=== PATIENT | female | born 1995 | race African-American/Black ===

== ENCOUNTER 2021-04-03 20:25 | Emergency (ER) | payer SELFPAY ==
[2021-04-03] MEDS ORDERED: Dexamethasone 10 MG/ML VIAL ONE (21:06)
[2021-04-03] MEDS ORDERED: Acetaminophen 500 MG TAB ONE (21:07)
== END 2021-04-03 21:53 | disposition home or self-care (01) ==
LOC: CSHERS 20:25
DX: J02.9 Acute pharyngitis, unspecified (principal)
CPT/HCPCS: 87081; 87430; 99284; J1100

== ENCOUNTER 2022-07-08 08:43 | Emergency (ER) | payer OTHER, SELFPAY | END 2022-07-08 10:04 | disposition home or self-care (01) | LOC: CSHERS 08:43 | DX: S23.3XXA Sprain of ligaments of thoracic spine, initial encounter (principal); V89.2XXA Person injured in unspecified motor-vehicle accident, traffic, initial encounter | CPT/HCPCS: 99283 ==

== ENCOUNTER 2022-12-23 09:14 | Emergency (ER) | payer SELFPAY ==
[2022-12-23] MEDS ORDERED: Proparacaine 0.5% Opth 15 ML BOT ONE (09:53)
[2022-12-23] MEDS ORDERED: Erythromycin Base 0.5% Oint 1 GM TUBE ONE (09:53)
== END 2022-12-23 11:02 | disposition home or self-care (01) ==
LOC: CSHERS 09:14
DX: H10.9 Unspecified conjunctivitis (principal)
CPT/HCPCS: 99283